=== PATIENT | female | born 1980 | race Caucasian/White ===

== ENCOUNTER 2017-09-20 15:02 | Outpatient (CLI) | payer OTHER | END 2017-09-20 15:03 | disposition home or self-care (01) | LOC: BICCT 15:02 | PROVIDERS: ATTEND Family Medicine | DX: J32.0 Chronic maxillary sinusitis (principal); J34.2 Deviated nasal septum; J34.89 Other specified disorders of nose and nasal sinuses ==

== ENCOUNTER 2018-02-14 07:12 | Outpatient (CLI) | payer OTHER | END 2018-02-14 07:13 | disposition home or self-care (01) | LOC: BICULT 07:12 | PROVIDERS: ATTEND Family Medicine | DX: N92.0 Excessive and frequent menstruation with regular cycle (principal) | CPT/HCPCS: 76856 ==